=== PATIENT | female | born 1990 | race American Indian/Alaskan Native ===

== ENCOUNTER 2016-09-18 13:41 | Outpatient (CLI) | payer OTHER ==
[2016-09-18] MEDS ORDERED: LACTATED RINGER'S 1000ML 500 ML IV ONE (14:13)
[2016-09-18] MEDS ORDERED: LACTATED RINGER'S 1000ML 1,000 ML IV SCH (14:13)
[2016-09-18 14:38] LABS: URINE APPEARANCE TURBID (CLEAR); URINE BILIRUBIN NEG (NEG); URINE COLOR YELLOW; URINE EPITHELIAL CELL AUTO >30 /lpf (0-5); URINE NITRITE NEG (NEG); URINE PH 7.5 (4.5-7.5); URINE SPECIFIC GRAVITY 1.023 (1.000-1.030); UROBILINOGEN NEG (NEG); ZZUR CULT IF INDIC CLEAN CATCH YES
[2016-09-18 14:46] LABS: MANUAL MICROSCOPIC REQUIRED? NO; REVIEW REQ? NO
[2016-09-18] MEDS ORDERED: PRENTAB26 PO (15:45)
== END 2016-09-18 16:00 | disposition home or self-care (01) ==
LOC: C.OPB 13:41 → C.LD 13:41 → C.OPB 16:00
PROVIDERS: ATTEND Obstetrics & Gynecology
DX: O62.9 Abnormality of forces of labor, unspecified (principal); O99.89 Other specified diseases and conditions complicating pregnancy, childbirth and the puerperium; M54.9 Dorsalgia, unspecified; Z3A.27 27 weeks gestation of pregnancy

== ENCOUNTER 2019-06-28 02:16 | Inpatient (IN) ==
[2019-06-28] MEDS ORDERED: LACTATED RINGER'S 1,000 ML IV SCH (03:15)
[2019-06-28] MEDS ORDERED: OXYTOCIN 30 UNITS/500 ML BAG IV PRN ×2 (03:52→06:18)
[2019-06-28] MEDS ORDERED: fentaNYL citrate 100 MCG/2 ML VIAL ONE (03:54)
[2019-06-28] MEDS ORDERED: BUPIVACAINE 0.25% 30 ML VIAL ONE (03:54)
[2019-06-28] MEDS ORDERED: ePHEDrine sulfate 50 MG/ML AMP ONE (03:54)
[2019-06-28] MEDS ORDERED: fentaNYL 2MCG/ML ROPIV 1.25MG/ML 100 ML BAG EPI ONE (03:55)
[2019-06-28] MEDS ORDERED: NALOXONE HCL 1 MG in SODIUM CHLORIDE 0.9% 1000ML 1,000 ML IV PRN (04:16)
[2019-06-28] MEDS ORDERED: ePHEDrine sulfate 50 MG/ML AMP IV PRN (04:16)
[2019-06-28] MEDS ORDERED: ONDANSETRON INJ 2 MG/ML 2 ML VIAL IV PRN (04:16)
[2019-06-28] MEDS ORDERED: DiphenhydrAMINE HCL 50 MG/ML VIAL IV PRN (04:16)
[2019-06-28] MEDS ORDERED: NALOXONE HCL 0.4 MG/1 ML VIAL/CARP IV PRN (04:16)
[2019-06-28] MEDS ORDERED: NALBUPHINE HCL INJ 10 MG/ML AMP IV PRN (04:16)
[2019-06-28] MEDS ORDERED: fentaNYL 2MCG/ML ROPIV 1.25MG/ML 100 ML BAG EPI PRN (04:16)
--- NOTE | 2019-06-28 04:17 | Anesthesiology Consultation ---
Date of Service June 28, 2019 Assessment & Plan (1) Encounter for pre-operative examination: Chart Review Chart Review: Patient NOT seen in Pre Admission Testing and Acceptable Risk for Labor Epidural Consults Requested none History Height/Weight Height: 5 ft 3 in Weight: 76.204 kg Allergies Allergy/AdvReac Type Severity Reaction Status Date / Time No Known Allergies Allergy Verified 06/28/19 02:38 Medications Home Medications Medication Instructions Recorded Confirmed Last Taken vit-iron fum-folic ac 1 tab PO DAILY 06/28/19 06/28/19 06/27/19 08:00 [ Vitamin] Exercise / Class Metabolic Activity II 4-5 Yardwork/Stairs/Walk up hill Past Surgical History Surgical History [place] teeth removed Past Anesthesia History No Hx of Anesthesia Complications and No Family Hx of Anesthesia Complications History of PONV No Hx of PONV and No Hx of Motion Sickness Social History Smoking Status: Never smoker Do You Dip or Chew Tobacco: No Hx Alcohol Use: No Hx Substance Use: No substance use type: does not use Physical Exam Vital Signs Last Vital Signs Temp 36.7 C 06/28/19 02:33 Pulse 64 06/28/19 04:42 Resp 20 06/28/19 04:40 BP 117/70 06/28/19 04:40 Pulse Ox 100 06/28/19 04:42 Testing Laboratory Results 06/28/19 04:12
[2019-06-28 04:41] LABS: Hematocrit (blood only) 38.7 % (37-47); Hemoglobin 12.7 g/dL (12.0-16.0); Mean Corpuscular Hemoglobin 31.2 pg (25-34); Mean Corpuscular Hgb Conc 32.8 g/dL (32-36); Mean Corpuscular Volume 95.1 fL (80-100); Platelet Count 114 K/uL (130-400); Platelet Estimate Normal (Normal); RDW Standard Deviation 44.8 fL (36.4-46.3); Red Blood Count 4.07 M/uL (4.2-5.4); White Blood Count 7.86 K/uL (4.8-10.8)
[2019-06-28] MEDS: LACTATED RINGER'S 1,000 ML IV SCH ×3 (04:45→20:04)
[2019-06-28] MEDS ORDERED: miSOPROStoL 200 MCG TAB ONE ×2 (05:37→05:39)
[2019-06-28] MEDS ORDERED: KETAMINE HCL INJ 50 MG/ML 10 ML VIAL ONE (05:46)
[2019-06-28] MEDS ORDERED: SODIUM CHLORIDE 0.9% 250 ML IV PRN (05:59)
[2019-06-28 06:17] LABS: Basophils # (auto) 0.01 K/uL (0-0.2); Basophils % (auto) 0.1 %; Eosinophils # (auto) 0.03 K/uL (0-0.5); Eosinophils % (auto) 0.3 %; Hematocrit (blood only) 32.3 % (37-47); Hemoglobin 10.8 g/dL (12.0-16.0); Immature Granulocytes # (auto) 0.05 K/uL (0.00-0.02); Immature Granulocytes % (auto) 0.5 %; Lymphocytes # (auto) 1.69 K/uL (1.2-3.4); Lymphocytes % (auto) 15.7 %; Mean Corpuscular Hemoglobin 31.9 pg (25-34); Mean Corpuscular Volume 95.3 fL (80-100); Mean Platelet Volume 11.6 fL (7.4-10.4); Monocytes # (auto) 0.61 K/uL (0.11-0.59); Monocytes % (auto) 5.7 %; Neutrophils % (auto) 77.7 %; Platelet Count 136 K/uL (130-400); RDW Standard Deviation 45.3 fL (36.4-46.3); Red Blood Count 3.39 M/uL (4.2-5.4); White Blood Count 10.79 K/uL (4.8-10.8)
--- NOTE | 2019-06-28 06:17 | Operative Report ---
Post Operative Report Pre & Post Diagnosis Retained placenta I identified the patient and participated in the time-out.: Yes Procedure Manual removal of placenta Dilation and curettage Surgeon Otto Reno MD Divorce Lawyer none Estimated Blood Loss 1,000 Findings Consistent with Post-Op Diagnosis retained placenta Fluids LR Specimens placenta Drains Mirza Anesthesia Type MAC Epidural Complications none Disposition Accompanied Patient To Recovery: Yes Disposition: L&D Indications retained placenta post- bleeding Description of Procedure Manual removal of placenta Dilation and curettage I attest to the content of the Intraoperative Record and any orders documented therein. Any exceptions are noted below. no qualified resident available
[2019-06-28] MEDS ORDERED: BENZOCAINE 20% AER SPR 82.5 GM CAN EXT PRN (06:18)
[2019-06-28] MEDS ORDERED: miSOPROStoL 200 MCG TAB PR ONE (06:18)
[2019-06-28] MEDS ORDERED: ACETAMINOPHEN 325 MG TAB PO PRN (06:18)
[2019-06-28] MEDS ORDERED: IBUPROFEN 600 MG TAB PO PRN (06:18)
[2019-06-28] MEDS ORDERED: bisacodyL 10 MG SUPP PR PRN (06:18)
[2019-06-28] MEDS ORDERED: HYDROCORTISONE ACETATE 25 MG SUPP PR PRN (06:18)
[2019-06-28] MEDS ORDERED: DIPHTHERIA/TETANUS/PERTUSSIS 0.5 ML SYR/VIAL IM ONE (06:18)
[2019-06-28] MEDS ORDERED: SUPERCREAM 0.870% 15 GM JAR EXT PRN (06:18)
[2019-06-28] MEDS ORDERED: OXYTOCIN 10 UNITS/ML VIAL ONE (06:19)
[2019-06-28] MEDS ORDERED: PHENYLEPHRINE 100MCG/ML 5ML SYR ONE (06:19)
--- NOTE | 2019-06-28 06:19 | Anesthesiology Progress Note ---
Date of Service June 28, 2019 Anesthesia Post Procedure Vital Signs Vital Signs: Temp Pulse Resp BP Pulse Ox 06/28/19 06:16 72 100 06/28/19 06:14 68 107/63 06/28/19 06:11 70 100 06/28/19 06:09 73 105/59 L 06/28/19 06:06 85 100 06/28/19 05:42 74 71/40 L 100 06/28/19 05:40 88 72/39 L 06/28/19 05:38 75 70/40 L 06/28/19 05:37 65 100 06/28/19 05:36 61 76/39 L 06/28/19 05:35 16 06/28/19 05:34 65 81/46 L 06/28/19 05:32 78 97 06/28/19 05:31 75 103/52 L 06/28/19 05:27 62 116/59 L 98 06/28/19 05:22 70 99 06/28/19 05:17 64 99 06/28/19 05:12 75 18 110/62 97 06/28/19 05:07 76 97 06/28/19 05:02 78 97 06/28/19 05:01 71 20 118/66 06/28/19 04:58 76 20 131/81 06/28/19 04:57 74 98 06/28/19 04:55 70 118/77 06/28/19 04:52 36.7 C 73 20 119/79 100 06/28/19 04:49 70 122/72 06/28/19 04:47 72 100 06/28/19 04:46 67 18 125/76 06/28/19 04:43 71 117/72 06/28/19 04:42 36.7 C 64 100 06/28/19 04:40 70 20 117/70 92 06/28/19 04:37 76 20 114/66 99 06/28/19 04:33 78 22 146/65 H 06/28/19 04:32 79 98 06/28/19 04:27 80 99 06/28/19 04:22 78 99 06/28/19 02:40 18 06/28/19 02:33 36.7 C 69 18 124/67 Pain Intensity Bilateral Lower Abdomen: Pain Intensity: 5 Notes Mental Status: alert / awake / arousable and participated in evaluation Patient Amnestic to Procedure: No Nausea / Vomiting: adequately controlled Pain: adequately controlled Airway Patency, RR, SpO2: stable & adequate BP & HR: stable & adequate Hydration State: stable & adequate Anesthetic Complications: no major complications apparent and Pt Satisfied with anesthetic care
--- NOTE | 2019-06-28 06:19 | Anesthesia Procedure Note ---
Date of Service June 28, 2019 Anesthesia Post Epidural Note Vital Signs Vital Signs: Temp Pulse Resp BP Pulse Ox 36.7 C 72 16 107/63 100 06/28/19 04:52 06/28/19 06:16 06/28/19 05:35 06/28/19 06:14 06/28/19 06:16 Pain Intensity Bilateral Lower Abdomen: Pain Intensity: 5 Notes Mental Status: alert / awake / arousable and participated in evaluation Patient Amnestic to Procedure: No Nausea / Vomiting: adequately controlled Pain: adequately controlled Airway Patency, RR, SpO2: stable & adequate BP & HR: stable & adequate Hydration State: stable & adequate Neuraxial Anesthesia: was administered and sensory block is resolving Anesthetic Complications: no major complications apparent and Pt Satisfied with anesthetic care Epidural: Removed without complications and With tip intact
[2019-06-28 06:22] LABS: Mean Corpuscular Hgb Conc 33.4 g/dL (32-36)
--- NOTE | 2019-06-28 06:40 | Delivery Summary ---
Vaginal Delivery Summary Date of Service June 28, 2019 Vaginal Delivery Summary Delivery Note live female over intact perineum SARAH BETH with delayed cord clamping and Apgars 8/9 weight 7-17. Cord blood was obtained and placenta did not separate after almost 30 minutes. Numerous attempts at massaging uterus with slight traction on cord with patient pushing did not deliver the placenta. Bladder emptied of 100 ml. urine. Patient continued to have post-delivery bleeding and had blood pressure drop and became symptomatic due to acute blood loss. Decision made to bring patient back to OR for stat emergency removal of placenta and D&C. This will be dictated separately. The final sponge and instrument count are correct. Baby to nursery stable. Mom taken back to OR.
[2019-06-28] MEDS ORDERED: NON-FORMULARY MEDICATION (Prenatal Vit-Iron Fum-Folic Ac [Prenatal Vitamin] 1 TAB) PO SCH (09:00)
[2019-06-28] MEDS: FERROUS SULFATE 325 MG TAB PO SCH (09:12)
[2019-06-28] MEDS: PRENATAL VITAMIN 1 TAB PO SCH (09:12)
[2019-06-28] MEDS: DOCUSATE SODIUM 100 MG CAP PO SCH ×2 (09:13→19:54)
[2019-06-28 18:29] LABS: Hematocrit (blood only) 25.7 % (37-47); Hemoglobin 8.8 g/dL (12.0-16.0); Mean Corpuscular Hemoglobin 32.5 pg (25-34); Mean Corpuscular Hgb Conc 34.2 g/dL (32-36); Mean Corpuscular Volume 94.8 fL (80-100); Mean Platelet Volume 11.3 fL (7.4-10.4); Platelet Count 112 K/uL (130-400); RDW Coefficient of Variation 13.2 % (11.5-14.5); RDW Standard Deviation 45.2 fL (36.4-46.3); Red Blood Count 2.71 M/uL (4.2-5.4); White Blood Count 12.48 K/uL (4.8-10.8)
--- NOTE | 2019-06-28 18:44 | History and Physical Report ---
DATE OF ADMISSION: 06/28/2019 REASON FOR ADMISSION: Term , in labor. HISTORY OF PRESENT ILLNESS: The patient is a 28-year-old female, para 2-0-0-2, at 39 weeks and 1 day, admitted in early labor and then subsequently became active. The patient had a recent delivery in 2016, uncomplicated, and a delivery in 2011 at 35 weeks and 2 days. SOCIAL HISTORY: Denies smoking, alcohol or drug use. MEDICATIONS: vitamins. SOCIAL HISTORY: Noncontributory. REVIEW OF SYSTEMS: Negative. ALLERGIES: No known allergies. PHYSICAL EXAMINATION: HEENT: Within normal limits. LUNGS: Clear to auscultation. CARDIOVASCULAR: Regular rate and rhythm. GBS is negative. ASSESSMENT: Term , PLAN: The patient for epidural.
[2019-06-28] MEDS ORDERED: LACTATED RINGER'S 1,000 ML IV ONE (18:51)
--- NOTE | 2019-06-28 19:06 | Operative Report (OR) ---
DATE OF OPERATION: 06/28/2019 PREOPERATIVE DIAGNOSES: Retained placenta and bleeding. POSTOPERATIVE DIAGNOSES: Retained placenta and bleeding. PROCEDURE: Manual removal of placenta and dilation and curettage. SURGEON: Otto Reno MD. DOLLY PUSHER: None. ESTIMATED BLOOD LOSS: 1000 mL FINDINGS: Retained placenta. FLUIDS: LR. SPECIMEN: Placenta. DRAINS: Mirza. ANESTHESIA: MAC epidural. COMPLICATIONS: None. HISTORY OF PRESENT HISTORY: The patient is a 28-year-old female, para 2-0-0-2, status post today with Apgars of 8 and 9, weight 7 pounds 14 ounces. Cord was noted to be thin. After delivery, the placenta would not separate and would not deliver despite uterine massage and gentle traction. The patient started having some bleeding and hypotension and drop in blood pressure and the patient was brought to the OR for manual removal of placenta and D and C due to acute bleeding. The patient was brought back stat to the OR. She was identified and procedure started. DESCRIPTION OF PROCEDURE: Under satisfactory epidural anesthesia with MAC, the patient was placed in the dorsal lithotomy position. She was prepped with Betadine rapidly, a large amount of bleeding was noted at that time, manual insertion of a gloved right hand into the uterus, removed placenta which was high up on the fundus. No clots were noted after this bleeding had subsided substantially. A weighted speculum was placed in the posterior vault of the vagina and then the cervix was grasped and a large banjo curette was then used to curette minimal amounts of tissue. No active bleeding was noted. The vagina was inspected. There were no tears. All remaining instruments were then removed, 1000 mcg of Cytotec were then placed rectally. Prior to the Cytotec, Mirza catheter was inserted of clear urine minimal noted. Cytotec was then placed rectally 1000 mcg. All remaining instruments were then removed. The final sponge, needle and instrument counts were found to be correct. The patient was then placed supine. She was taken to recovery room in stable condition. I attest to the content of the Intraoperative Record and any orders documented therein. Any exception s are noted below.
[2019-06-29] MEDS: LACTATED RINGER'S 1,000 ML IV SCH (03:34)
[2019-06-29] MEDS: PRENATAL VITAMIN 1 TAB PO SCH (08:28)
[2019-06-29] MEDS: FERROUS SULFATE 325 MG TAB PO SCH (08:28)
[2019-06-29] MEDS: DOCUSATE SODIUM 100 MG CAP PO SCH ×2 (08:28→20:31)
--- NOTE | 2019-06-29 11:35 | Obstetrical Progress Note ---
Date of Service June 29, 2019 Assessment & Plan (1) Normal course: PPD #1 PPH pt doing well' Tolerating PO food and Meds Repeat H/H this disch AM Results & Data Vital Signs (Past 12 Hours) Vital Signs Temp Pulse Resp BP Pulse Ox 06/29/19 07:30 36.6 C 97 H 16 105/68 100 06/29/19 03:30 36.7 C 89 14 105/67 97
[2019-06-29] MEDS ORDERED: bisacodyL 5 MG TABEC PO SCH (20:00)
--- NOTE | 2019-06-30 06:22 | Obstetrical Progress Note ---
Date of Service June 30, 2019 Assessment & Plan (1) Normal course: PPD #2 s/p PPH Pt doing well d/c home after H/H Subjective Ambulation: ambulating normally Voiding: no voiding problems Passing Gas:: Yes Diet Tolerance:: regular diet Lochia:: Small Feeding Type:: breast feeding Review of Systems All systems reviewed & are unremarkable except as noted in HPI & below Physical Exam Constitutional WD/WN, vitals as above well developed and well nourished Eyes PERRL, conjunctivae normal, anicteric sclerae Neck trachea midline, no thyromegaly Respiratory normal respiratory effort, lungs clear to auscultation Auscultation: no crackles, no rales and no wheezes Cardiovascular RRR, no murmur, no edema Gastrointestinal (Abdomen) normal bowel sounds, soft, nontender, no hepatosplenomegaly Uterus is below umbilicus Musculoskeletal no cyanosis or clubbing, extremities motor strength 5/5 Skin no rashes, warm and dry Neurologic patellar DTR's 2+ bilat, sensation intact Psychiatric A+Ox3, euthymic affect Genitourinary normal external appearance Results & Data Vital Signs (Past 12 Hours) Vital Signs Temp Pulse Resp BP 06/29/19 23:55 36.9 C 85 16 117/76 06/29/19 19:35 36.6 C 98 H 18 111/70
[2019-06-30 06:27] LABS: Hematocrit (blood only) 24.4 % (37-47); Mean Corpuscular Hemoglobin 31.7 pg (25-34); Mean Corpuscular Hgb Conc 32.8 g/dL (32-36); Mean Corpuscular Volume 96.8 fL (80-100); Mean Platelet Volume 11.3 fL (7.4-10.4); Platelet Count 131 K/uL (130-400); RDW Coefficient of Variation 13.4 % (11.5-14.5); RDW Standard Deviation 46.9 fL (36.4-46.3); Red Blood Count 2.52 M/uL (4.2-5.4); White Blood Count 8.26 K/uL (4.8-10.8)
[2019-06-30] MEDS: FERROUS SULFATE 325 MG TAB PO SCH (08:56)
[2019-06-30] MEDS: DOCUSATE SODIUM 100 MG CAP PO SCH (08:56)
[2019-06-30] MEDS: PRENATAL VITAMIN 1 TAB PO SCH (08:57)
--- NOTE | 2019-07-07 10:18 | Discharge Summary (DS) ---
HOSPITAL COURSE AND REASON FOR ADMISSION: The patient is a 28-year-old female, para 2-0-0-2, who underwent a normal spontaneous vaginal delivery with a viable , Apgars were 8 and 9. weight was 7 pounds 14 ounces. Post-delivery, the patient had a retained placenta. She was brought to the OR for bleeding and hypotension, drop of blood pressure. Had a manual removal of placenta and a D and C for acute bleeding. Subsequently, she was discharged home in stable condition and did well postoperatively. Home going instructions were given. Condition on discharge is stable. Regular diet on discharge. Medications include Motrin and iron. Follow up will be in the office.
== END 2019-06-30 10:45 | disposition home or self-care (01) | DRG 806 ==
LOC: OPB 02:16 → 4S1 02:20 → 4S2 17:14

== ENCOUNTER 2022-09-30 05:26 | Inpatient (IN) ==
[2022-09-30] MEDS ORDERED: OXYTOCIN 30 UNITS/500 ML BAG IV PRN (05:54)
[2022-09-30] MEDS ORDERED: LIDOCAINE 1% LOCAL 20 ML VIAL INFIL PRN (05:54)
[2022-09-30] MEDS ORDERED: LACTATED RINGER'S 1,000 ML IV PRN (05:54)
--- NOTE | 2022-09-30 06:34 | History & Physical Report ---
Date of Service September 30, 2022 Assessment & Plan (1) Normal vaginal delivery: Plan: Delivered vaginally, routine care Admission and Anticipated Discharge Date Admission Date: September 30, 2022 History of Present Illness Chief Complaint: "I need to push" Primary Care Provider: NO PCP 31yo at 37w6d, prior f/b two term vaginal deliveries, presents to labor and delivery and found to be completely dilated and ready to push. She stated her contractions started at 11:30pm, became regular and her water broke around 4am, and she paged the on-call to notify she was heading to the hospital (but did not answer her phone or speak to the doctor) around 5:15. She arrived to the hospital around 5:45 completely dilated and ready to push. She delivered her infant not long after, with Dr. Dhaliwal covering the of the baby as this MD was just arriving at the hospital. I then took over for delivery of the placenta. Of note, baby reportedly delivered SARAH BETH. Mom was reportedly reluctant to position herself other than knee-chest, but ultimately did deliver in lithotomy. She had refused IV placement, as well as declining the standard vaccinations, ointment and vitK for her infant. She declined to have cord clamped for a prolonged period, and declined to have traction applied to the cord or perineum examined for laceration. After I took over, she and FOB admitted that her prior delivery required OR/D&C for retained placenta. I advised strongly that she accept traction and massage to encourage placental delivery, along with IV placement as a safeguard in the event of PPH, for which she is high risk. She declined, but the FOB encouraged her citing, "don't you remember that time you bled really badly?" and then she agreed. With massage the placenta delivered spontaneously in the next 1-2 minutes, intact. Vagina/perineum were free of lacerations. Although about 500cc of lochia came out immediately after placental delivery, once that was done the fundus was firm and additional lochia was light. The patient accepted IM pitocin after counseling about risks and benefits, but requested that IV site once established not be used to give additional pitocin unless agreed-upon by her. complicated by history of delivery, likely L dermoid cyst, abnormal pap which needs f/u after , and declining genetic testing, declining routine vaccinations as well as declining all testing for GDM. Allergies Allergy/AdvReac Type Severity Reaction Status Date / Time No Known Allergies Allergy Verified 09/27/22 10:40 Home Medications Medication Instructions Recorded Confirmed Type vitamins-iron fumarate 27 1 tab PO DAILY 06/28/19 09/30/22 History mg iron-folic acid 0.8 mg tablet ( Vitamin) Patient History Medical History No known health problems Surgical History [place] teeth removed Family History Other Cancer Diabetes Social History Smoking Status: Never smoker Do You Dip or Chew Tobacco: No; Hx Alcohol Use: No Hx Substance Use: No Preferred Language: Yi Communication Ability: Effective Visual Impairment: No Limitations Hearing Ability: Normal Cutter Machine Required: No Beliefs That Will Affect Care: None marital status: marital status details: Brooks (30) [phone] Current Living Situation: Spouse and Family Current Living Situation Comment: lives with spouse, 3 children, 2 dogs. 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 In mild distress c/w mid-delivery pain, medically stable. Bleeding appropriate for stage of delivery. Had not had IV site established and had declined all medications to that point. Umbilical cord protruding from vagina, clamped and cut. Crying infant swaddled in patient's arms Results & Data Vital Signs (Past 12 Hours) Vital Signs Pulse BP 09/30/22 06:18 72 108/82 Coding Level of Care Code None Diagnoses Normal vaginal delivery O80
--- NOTE | 2022-09-30 06:36 | Delivery Summary ---
Vaginal Delivery Summary Date of Service September 30, 2022 Vaginal Delivery Summary See delivery note contained within H&P due to precipitous delivery upon arrival. Delivery of fetus with Dr. Dhaliwal, placenta with Dr. Sahu. [facility] [place] Vaginal Delivery Codes: 92232 global code for the antepartum, delivery, and post-
[2022-09-30] MEDS ORDERED: OXYTOCIN 10 UNITS/ML VIAL IM ONE ×2 (06:46→07:04)
[2022-09-30] MEDS ORDERED: BENZOCAINE 20% SPRY 85 APPLN/85 GM CAN EXT PRN (07:04)
[2022-09-30] MEDS ORDERED: ACETAMINOPHEN 325 MG TAB PO PRN (07:04)
[2022-09-30] MEDS ORDERED: HYDROCORTISONE ACETATE 25 MG SUPP PR PRN (07:04)
[2022-09-30] MEDS ORDERED: oxyCODONE/ACETAMINOPHEN 5mg/325mg TAB PO PRN (07:04)
[2022-09-30] MEDS ORDERED: IBUPROFEN 600 MG TAB PO PRN (07:04)
[2022-09-30 07:21] LABS: Hematocrit (blood only) 34.6 % (37.0-47.0); Hemoglobin 11.1 g/dl (12.0-16.0); Mean Corpuscular Hemoglobin 27.5 pg (25.0-34.0); Mean Corpuscular Hgb Conc 32.1 g/dL (32.0-36.0); Mean Corpuscular Volume 85.6 fL (80.0-100.0); Mean Platelet Volume 12.3 fL (9.4-12.4); Platelet Count 116 K/uL (130-400); RDW Coefficient of Variation 12.9 % (11.5-14.5); RDW Standard Deviation 40.1 fL (36.4-46.3); Red Blood Count 4.04 M/uL (4.20-5.40); White Blood Count 7.34 K/ul (4.8-10.8)
[2022-09-30] MEDS: DOCUSATE SODIUM 100 MG CAP PO SCH ×2 (11:36→21:01)
[2022-09-30] MEDS: PRENATAL VITAMIN 1 TAB PO SCH (11:37)
--- NOTE | 2022-10-01 05:50 | Obstetrical Progress Note ---
Date of Service October 01, 2022 Assessment & Plan (1) Normal vaginal delivery: Admission and Anticipated Discharge Date Admission Date: September 30, 2022 Supervising Physician Co-Signing Physician Notes Resident Physician Supervision Note: I interviewed and examined the patient. Discussed with Dr. Duke and agree with findings and plan as documented in the note. Any exceptions or clarifications are listed here: [ ] Documented By: Pita Sahu MD, FACOG Subjective Resting comfortably this AM in NAD. Ambulation: ambulating normally Voiding: no voiding problems Passing Gas:: Yes Diet Tolerance:: regular diet Lochia:: Small Feeding Type:: breast feeding Current Pain Level(1-10): sore 05/21 Review of Systems Review of Systems: reviewed, per HPI Physical Exam 2 Physical Exam: General: patient resting comfortably, NAD, non-toxic in appearance, AA&O x 4, answers questions appropriately and follows commands. Skin: warm, dry, intact HEENT: NC/AT, anicteric sclera, conjunctiva without injection, moist mucus membranes, trachea midline, no thyromegaly, no JVD Heart: +S1/S2, regular, no m/r/g Lungs: equal air entry bilaterally, no rales/rhonchi/wheezes Abd: +BS, soft, NT/ND, no masses/organomegaly/ascites, uterine fundus firm at the umbilicus Ext: warm, no clubbing/cyanosis or edema, neg Alvino's Neuro: nonfocal, patient AA&O x 4, speech intact, no facial droop, moving all extremities on command. Results & Data Vital Signs (Past 12 Hours) Vital Signs Temp Pulse Pulse Resp BP Pulse Ox O2 Del Method 10/01/22 04:15 36.8 C 67 18 124/72 98 Room Air 10/01/22 00:15 36.9 C 76 18 110/70 97 Room Air 09/30/22 20:45 36.7 C 72 18 107/66 98 Room Air 09/30/22 17:52 36.6 C 68 16 119/72 98 Room Air Resident Activity Tracking Resident Involvement: Resident Care Provided Care Provided: Adult [facility] Medicine
[2022-10-01 06:24] LABS: Hematocrit (blood only) 32.7 % (37.0-47.0); Hemoglobin 10.4 g/dl (12.0-16.0); Mean Corpuscular Hemoglobin 27.2 pg (25.0-34.0); Mean Corpuscular Hgb Conc 31.8 g/dL (32.0-36.0); Mean Corpuscular Volume 85.4 fL (80.0-100.0); Mean Platelet Volume 11.5 fL (9.4-12.4); Platelet Count 141 K/uL (130-400); RDW Coefficient of Variation 13.1 % (11.5-14.5); Red Blood Count 3.83 M/uL (4.20-5.40); White Blood Count 10.72 K/ul (4.8-10.8)
[2022-10-01] MEDS: PRENATAL VITAMIN 1 TAB PO SCH (08:35)
[2022-10-01] MEDS: DOCUSATE SODIUM 100 MG CAP PO SCH (08:35)
[2022-10-01] MEDS ORDERED: DIPHTHERIA/TETANUS/PERTUSSIS Vaccine (Tdap, Age 7+yrs) 0.5mL SYR/VL IM ONE (09:00)
== END 2022-10-01 10:58 | disposition home or self-care (01) | DRG 807 ==
LOC: OPB 05:26 → 4S1 05:28 → 4E2 09:17